=== PATIENT | male | born 1970 | race Caucasian/White ===

== ENCOUNTER 2018-01-17 01:00 | Inpatient (IN) | payer MEDICAID ==
[~2018-01-17] VITALS: Ht 175.3 cm; Wt 122.0 kg
--- NOTE | ~2018-01-17 | OP ---
PATIENT NAME: RAMON RODRIGUEZ MEDICAL RECORD: [id number] :70 LOCATION:[id number] ADMISSION DATE:01/17/18 SURGEON: VERO ROMERO MD DATE OF OPERATION: 01/18/2018 SURGEON: Vero Romero MD PREOPERATIVE DIAGNOSES: 1. Right thigh cellulitis and abscess. 2. Uncontrolled diabetes. 3. Hyperglycemia. POSTOPERATIVE DIAGNOSES: 1. Right thigh cellulitis and abscess. 2. Uncontrolled diabetes. 3. Hyperglycemia. PROCEDURE PERFORMED: Incision and drainage of multiloculated complex right thigh abscess. ANESTHESIA: General. COMPLICATIONS: None. SPECIMENS: Anaerobic and aerobic cultures. Case was grossly contaminated. ESTIMATED BLOOD LOSS: 20 cc. OPERATIVE COURSE: After consent was obtained, the patient was taken to the operating room and placed in the supine position on the operating table. General anesthesia was given via endotracheal intubation after a timeout was performed to confirm the correct patient and procedure. The patient was then placed in the frog-leg position. The perineum and right thigh were prepped and draped in a typical sterile fashion. An elliptical skin incision was made that was 6 cm in length x 2 cm in width. The skin was excised with a 15-blade scalpel and electrocautery. Once the skin was excised, anaerobic and aerobic fluid cultures were obtained. The abscess cavity had multiple areas of loculation that were bluntly finger dissected. Once the abscess cavity was fully dissected with blunt finger dissection, it was irrigated with Betadine and peroxide. The wound measured 6 cm in length, 8 cm in depth, and 2 cm in width. The wound was packed with Betadine-soaked Kerlix gauze and covered with sterile gauze dressings. At the end of the case, all needle and instrument counts were correct. No complications occurred. The patient was extubated and transferred to the PACU in stable condition. TRANSINT:[id number] Voice Confirmation ID: [id number] DOCUMENT ID: [id number] OPERATIVE REPORT [id number] RAMON RODRIGUEZ JAMES J MD at 0813 CC: [id number] DICTATION DATE: 01/18/18 1543 E [address]ERCE MANAGER: 01/18/18 1944 ADM IN [place] [id number] [place] [address]
[2018-01-17 01:41] LABS: BASOPHILS 0.1 % (0-2); EOSINOPHILS 0.4 % (0-7); HEMOGLOBIN 16.2 g/dL (13.5-17.5); IMMATURE GRANULOCYTES 0.1 % (0-5); LYMPHOCYTES 15.9 % (15-50); MCH 30.5 pg (26.0-34.0); MCV 84.7 fL (80.0-100.0); MEAN PLATELET VOLUME 9.9 fL (7.4-10.4); MONOCYTES 7.9 % (2-11); NEUTROPHILS 75.6 % (40-80); PLATELET COUNT 174 10x3/uL (130-400); RBC 5.31 10x6/uL (4.20-6.10); RDW 12.4 % (11.5-14.5); WBC 13.5 10x3/uL (4.8-10.8)
[2018-01-17 01:46] LABS: KETONE - SERUM NEGATIVE (NEGATIVE)
[2018-01-17 01:53] LABS: APPEARANCE CLEAR (CLEAR); BILIRUBIN NEGATIVE (NEGATIVE); COLOR YELLOW (YELLOW); GLUCOSE 1000 mg/dL (NEGATIVE); KETONE NEGATIVE (NEGATIVE); NITRITE NEGATIVE (NEGATIVE); PROTEIN NEGATIVE (NEGATIVE); SPECIFIC GRAVITY 1.005 (1.005-1.020); UROBILINOGEN NORMAL (NORMAL)
[2018-01-17 01:58] LABS: ALBUMIN 3.5 g/dL (3.4-5.0); ALKALINE PHOSPHATASE 151 U/L (46-116); ALT (SGPT) 36 U/L (10-68); CALCIUM 9.1 mg/dL (8.5-10.1); CARBON DIOXIDE 20.4 mmol/L (21.0-32.0); CHLORIDE - SERUM 97 mmol/L (98-107); CREATININE - SERUM 1.3 mg/dL (0.6-1.3); MAGNESIUM - SERUM 1.7 mg/dL (1.8-2.4); PHOSPHOROUS 3.8 mg/dL (2.5-4.9); POTASSIUM - SERUM 3.9 mmol/L (3.5-5.1); PROTEIN - SERUM 7.7 g/dL (6.4-8.2); SODIUM 130 mmol/L (136-145); UREA NITROGEN 12 mg/dL (7-18); eGFR NON AFRICAN AMERICAN 63 mL/min (90-120)
[2018-01-17 01:59] LABS: CALC OSMOLALITY 289 mosm/kg (275-300); GLUCOSE 627 mg/dL (74-106)
[2018-01-17 04:05] VITALS: BP 116/77; BMI 39.8
[2018-01-17] MEDS ORDERED: ZANTAC150 MG PO (04:13)
[2018-01-17] MEDS ORDERED: GLUCOPHAGE1000 MG PO (04:14)
[2018-01-17] MEDS ORDERED: ELIQUIS5 MG PO (04:14)
[2018-01-17] MEDS ORDERED: GLIPIZIDE10 MG PO (04:14)
[2018-01-17] MEDS ORDERED: BAYER ASPIRIN325 MG PO (04:15)
[2018-01-17] MEDS ORDERED: EFFEXOR75 MG PO (04:15)
[2018-01-17 07:51] VITALS: BP 105/71
[2018-01-17 11:40] VITALS: BP 115/78
[2018-01-17 16:18] VITALS: BP 113/67
[2018-01-17 20:41] VITALS: BP 116/69
[2018-01-18 00:50] VITALS: BP 98/68
[2018-01-18 04:49] VITALS: BP 112/79
[2018-01-18 08:19] VITALS: BP 105/76
[2018-01-18 13:21] VITALS: BP 120/85
[2018-01-18 15:00] VITALS: Ht 175.3 cm; Wt 122.0 kg
[2018-01-18 16:23] VITALS: BP 127/72
[2018-01-18 20:00] VITALS: BP 120/63
[2018-01-19] VITALS: BP 107/66
[2018-01-19 04:00] VITALS: BP 111/73
[2018-01-19 08:46] VITALS: BP 117/76
[2018-01-19 12:05] VITALS: BP 115/76
[2018-01-19 16:52] VITALS: BP 124/83
[2018-01-19 20:00] VITALS: BP 113/55
[2018-01-20 04:00] VITALS: BP 116/79
[2018-01-20 05:08] LABS: BASOPHILS 0.1 % (0-2); EOSINOPHILS 2.5 % (0-7); HEMATOCRIT 40.1 % (42.0-54.0); HEMOGLOBIN 14.2 g/dL (13.5-17.5); IMMATURE GRANULOCYTES 0.3 % (0-5); LYMPHOCYTES 28.4 % (15-50); MCH 29.8 pg (26.0-34.0); MCHC 35.4 g/dL (31.0-37.0); MCV 84.2 fL (80.0-100.0); MEAN PLATELET VOLUME 9.4 fL (7.4-10.4); MONOCYTES 9.2 % (2-11); NEUTROPHILS 59.5 % (40-80); PLATELET COUNT 168 10x3/uL (130-400); RBC 4.76 10x6/uL (4.20-6.10); RDW 12.3 % (11.5-14.5); WBC 7.2 10x3/uL (4.8-10.8)
[2018-01-20 05:33] LABS: CALC OSMOLALITY 278 mosm/kg (275-300); CALCIUM 8.6 mg/dL (8.5-10.1); CARBON DIOXIDE 27.9 mmol/L (21.0-32.0); CHLORIDE - SERUM 105 mmol/L (98-107); CREATININE - SERUM 0.8 mg/dL (0.6-1.3); MAGNESIUM - SERUM 1.8 mg/dL (1.8-2.4); POTASSIUM - SERUM 3.8 mmol/L (3.5-5.1); SODIUM 139 mmol/L (136-145); UREA NITROGEN 9 mg/dL (7-18); eGFR NON AFRICAN AMERICAN > 90 mL/min (90-120)
[2018-01-20 05:38] LABS: GLUCOSE 141 mg/dL (74-106)
[2018-01-20 08:09] VITALS: BP 114/81
[2018-01-20 11:48] VITALS: BP 118/81
[2018-01-20] MEDS ORDERED: KEFLEX500 MG PO (15:43)
== END 2018-01-20 16:00 | disposition home or self-care (01) | DRG 603 ==
LOC: D.ER 01:00 → D.MS 02:20 → D.EDHOLD 02:20 → D.MS 02:37
PROVIDERS: Emergency Medicine; Surgery
PROC: 0HBHXZZ Excision of Right Upper Leg Skin, External Approach (ICD-10-PCS; principal; 2018-01-18 11:30)
DX: L03.115 Cellulitis of right lower limb (principal); L02.415 Cutaneous abscess of right lower limb; F17.200 Nicotine dependence, unspecified, uncomplicated; K21.9 Gastro-esophageal reflux disease without esophagitis; E66.9 Obesity, unspecified; Z68.39 Body mass index [BMI] 39.0-39.9, adult